=== PATIENT | male | born 1945 | race Caucasian/White ===

== ENCOUNTER 2023-08-24 16:01 | Outpatient (CLI) | payer OTHER, SELFPAY ==
--- NOTE | 2023-08-24 | US_ITS ---
WS: [id number] ULTRASOUND SOFT TISSUES supraumbilical region. HISTORY: lesion on abd COMPARISON: None available. TECHNIQUE: 2-D and color Doppler imaging is submitted. There is a complex cystic mass in the subcutaneous soft tissues of the supraumbilical region. There e ntire collection measures 2.0 x 1.5 x 1.7 cm. Complex fluid collections are identified. There is disp lacement of the adjacent soft tissue musculature. There is no definite defect noted in the abdominal wall musculature. IMPRESSION: 1. Complex fluid collection without increased vascularity in the supraumbilical abdominal wall muscul ature. This needs to be further evaluated. With no history of pain this is not likely an incarcerated hernia. Recommend follow-up CT abdomen and pelvis with IV and oral contrast.
== END 2023-08-24 16:02 | disposition home or self-care (01) ==
LOC: RAD 16:12
PROVIDERS: PCP Emergency Medicine Emergency Medical Services; Visit Provider Emergency Medicine Emergency Medical Services
DX: R19.00 Intra-abdominal and pelvic swelling, mass and lump, unspecified site (principal)
CPT/HCPCS: 76882